=== PATIENT | male | born 1985 | race Caucasian/White ===

== ENCOUNTER 2017-08-24 10:47 | Inpatient (IN) | payer OTHER, MEDICAID ==
[~2017-08-24] VITALS: Ht 177.8 cm; Wt 81.9 kg
[2017-08-24] MEDS ORDERED: HALOPERIDOL 5 MG TABLET PO PRN (13:15)
[2017-08-24] MEDS ORDERED: LORazepam 2 MG TABLET PO PRN (13:15)
[2017-08-24] MEDS ORDERED: ZOLPIDEM TARTRATE 10 MG TABLET PO PRN (13:15)
[2017-08-24] MEDS ORDERED: METO50 PO (13:53)
[2017-08-24] MEDS ORDERED: MYCO180T3 PO (13:53)
[2017-08-24] MEDS ORDERED: TACR1 PO (13:53)
[2017-08-24] MEDS ORDERED: NIFE90TA45 PO (13:53)
[2017-08-24] MEDS ORDERED: PRED5 PO (13:53)
[2017-08-24] MEDS ORDERED: MINO2.5 PO (13:53)
[2017-08-24 13:55] VITALS: BP 151/86
[2017-08-24] MEDS ORDERED: INFLUENZA VIRUS VACCINE QVS 2017-18 (3YR+)/PF 60 MCG/0.5 ML SYRINGE IM ONE (15:15)
[2017-08-24] MEDS ORDERED: PNEUMOCOCCAL VACCINE POLYVALENT 0.5 ML VIAL [PPSV23] IM ONE (15:15)
[2017-08-24 15:20] VITALS: BP 147/87
[2017-08-24 16:49] VITALS: BP 133/85
[2017-08-24] MEDS ORDERED: MINOXIDIL 2.5 MG TABLET PO SCH (19:45)
[2017-08-24] MEDS: MYCOPHENOLATE SODIUM 180 MG DR TABLET PO SCH (21:32)
[2017-08-24] MEDS: MINOXIDIL 10 MG TABLET PO SCH (21:33)
[2017-08-24] MEDS: TACROLIMUS ANHYDROUS 1 MG CAPSULE PO SCH (21:33)
[2017-08-25 00:53] VITALS: BP 129/80
[2017-08-25] MEDS: TACROLIMUS ANHYDROUS 1 MG CAPSULE PO SCH ×2 (08:05→16:10)
[2017-08-25] MEDS: MINOXIDIL 10 MG TABLET PO SCH ×2 (08:05→16:10)
[2017-08-25] MEDS: MYCOPHENOLATE SODIUM 180 MG DR TABLET PO SCH ×2 (08:06→16:10)
[2017-08-25 08:12] LABS: HEMOGLOBIN A1C 5.1 % (4.5-6.2)
[2017-08-25 08:22] VITALS: BP 138/96
[2017-08-25 08:22] LABS: BASOPHILS % (AUTO) 0.4 % (0.0-2.0); EOSINOPHILS % (AUTO) 2.7 % (1.0-6.0); HEMATOCRIT 37.2 % (41-53); HEMOGLOBIN 13.1 g/dL (13.5-17.5); LYMPHOCYTES % (AUTO) 26.4 % (22.0-44.0); MEAN CORPUSCULAR HEMOGLOBIN 31.4 pg (26.0-34.0); MEAN CORPUSCULAR HGB CONC 35.3 G/dL (31.0-37.0); MEAN CORPUSCULAR VOLUME 89 fL (80-100); MONOCYTES # (AUTO) 0.8 K/uL (0.1-1.0); MONOCYTES % (AUTO) 10.4 % (2.0-9.0); NEUTROPHILS # (AUTO) 4.4 K/uL (1.8-7.7); NEUTROPHILS % (AUTO) 60.1 % (40.0-70.0); PLATELET COUNT (AUTO) 209 K/uL (150-450); RED BLOOD CELL COUNT(AUTO) 4.17 MIL/uL (4.50-5.90); WHITE BLOOD COUNT (AUTO) 7.4 K/uL (4.5-11.0)
[2017-08-25] MEDS: PredniSONE 5 MG TABLET PO SCH (08:31)
[2017-08-25 08:54] LABS: ALANINE AMINOTRANSFERASE 49 U/L (12-78); ALBUMIN 3.6 g/dL (3.4-5.0); ANION GAP 6 mmol/L (8-16); ASPARTATE AMINOTRANSFERASE 21 U/L (15-37); BILIRUBIN,TOTAL 0.5 mg/dL (0.1-1.0); CALCIUM, TOTAL 9.3 mg/dL (8.8-10.5); CARBON DIOXIDE 29 mmol/L (22-29); CHLORIDE 106 mmol/L (98-107); CHOL/HDL RATIO 5.8 (4.2-7.3); CREATININE 0.97 mg/dL (0.60-1.30); GLOMERULAR FILTR. RATE CALC > 60 mL/min (>60); POTASSIUM 4.6 mmol/L (3.5-5.1); SODIUM SERUM 141 mmol/L (136-145); THYROID STIMULATING HORMONE 1.62 uIU/mL (0.36-3.74); TOTAL PROTEIN, SERUM 6.8 g/dL (6.4-8.2); UREA NITROGEN, BLOOD 16 mg/dL (7-18)
[2017-08-25 16:00] VITALS: BP 162/94
[2017-08-25 19:56] VITALS: BP 148/97
[2017-08-26 02:56] VITALS: BP 144/86
[2017-08-26 08:11] VITALS: BP 138/86
[2017-08-26] MEDS: PredniSONE 5 MG TABLET PO SCH (08:33)
[2017-08-26] MEDS: TACROLIMUS ANHYDROUS 1 MG CAPSULE PO SCH (08:34)
[2017-08-26] MEDS: MYCOPHENOLATE SODIUM 180 MG DR TABLET PO SCH (08:34)
[2017-08-26] MEDS: MINOXIDIL 10 MG TABLET PO SCH (08:34)
== END 2017-08-26 13:00 | disposition home or self-care (01) | DRG 885 ==
LOC: B3A 13:33
PROVIDERS: ADMIT Psychiatry & Neurology Child & Adolescent Psychiatry; ATTEND Psychiatry & Neurology Child & Adolescent Psychiatry
DX: F29 Unspecified psychosis not due to a substance or known physiological condition (principal); Z94.0 Kidney transplant status; E78.5 Hyperlipidemia, unspecified; K21.9 Gastro-esophageal reflux disease without esophagitis; F41.9 Anxiety disorder, unspecified; G47.00 Insomnia, unspecified
CPT/HCPCS: 83036; 84439; 84443; J7507; J7518